=== PATIENT | male | born 1950 | race Caucasian/White ===

== ENCOUNTER 2019-08-24 08:40 | Day surgery (SDC) | payer MEDICARE, BC ==
[2019-08-24] MEDS ORDERED: Lactated Ringers 1,000 ML IV SCH (08:45)
[2019-08-24] MEDS ORDERED: Sodium Chloride 0.9% 10 ML Syringe FLUSH PRN (08:45)
[2019-08-24] MEDS ORDERED: Propofol 200 MG/20 ML SDV ONE ×3 (09:30→10:14)
--- NOTE | 2019-08-24 09:30 | PCM.HPR ---
H & P Addendum review - H & P Addendum Review Date of Original H & P: 08/10/19 Date Reviewed: 08/24/19 Time Reviewed: 09:30 Patient was Examined: No Changes
--- NOTE | 2019-08-24 10:12 | PCM.OPNOTE ---
- General Post-Op/Procedure Note Date of Surgery/Procedure: 08/24/19 Operative Procedure(s): Colonoscopy with polypectomy Findings: 2 polyps Sig tics Pre Op Diagnosis: Hx Polyps Post-Op Diagnosis: Same Anesthesia Technique: MAC Primary Surgeon: Sebastian Metcalf Complications: None Condition: Good
[2019-08-24 10:47] VITALS: BP 133/86; PULSE 62
--- NOTE | 2019-08-24 11:24 | OR ---
Date of Procedure: 08/24/2019 PREOPERATIVE DIAGNOSIS: History of colon polyps. POSTOPERATIVE DIAGNOSES: 1. Colon polyps. 2. Sigmoid diverticulosis. PROCEDURE: Colonoscopy with polypectomy. ANESTHESIA: IV sedation. DESCRIPTION OF PROCEDURE: The patient was brought to the procedure room where he was placed on his left side and IV sedation administered. Digital rectal exam was performed which was normal. Colonoscope was inserted and advanced to the level of the cecum without difficulty. Cecal position was confirmed by identifying the appendiceal lumen and ileocecal valve. Prep was good and surfaces were well visualized. In the cecum adjacent to the ileocecal valve, was a 6 mm sessile polyp removed with a cautery snare and retrieved in the polyp trap. At the hepatic flexure, was a small 5 mm sessile polyp, also removed with a cautery snare and retrieved for pathology review. The remaining transverse colon was normal. Descending colon was normal. Sigmoid colon had several diverticula present. Rectum was normal and retroflexion was normal. Air was removed and the scope withdrawn. The patient tolerated the procedure well and returned to Recovery in stable condition. PLAN: The patient will follow up with Jin Coello next week for review of pathology report. If polyps are adenomatous, he should undergo repeat colonoscopy again in 3 years. If polyps are hyperplastic, he could wait 5 years until his next colonoscopy. PRAFUL SMITH MD /[id number]
== END 2019-08-24 11:05 | disposition home or self-care (01) ==
LOC: LL.SDS 08:40
PROVIDERS: ATTEND Surgery
DX: Z12.11 Encounter for screening for malignant neoplasm of colon (principal); D12.0 Benign neoplasm of cecum; D12.3 Benign neoplasm of transverse colon; K57.30 Diverticulosis of large intestine without perforation or abscess without bleeding; I10 Essential (primary) hypertension; E11.9 Type 2 diabetes mellitus without complications; E66.9 Obesity, unspecified; J44.9 Chronic obstructive pulmonary disease, unspecified; K21.9 Gastro-esophageal reflux disease without esophagitis; M19.90 Unspecified osteoarthritis, unspecified site; N40.0 Benign prostatic hyperplasia without lower urinary tract symptoms; Z88.6 Allergy status to analgesic agent; Z68.36 Body mass index [BMI] 36.0-36.9, adult; Z86.010 Personal history of colon polyps; Z79.84 Long term (current) use of oral hypoglycemic drugs; Z79.82 Long term (current) use of aspirin; Z79.899 Other long term (current) drug therapy
CPT/HCPCS: 45385; 82962; J2704; J7120; 00811; 88305

== ENCOUNTER 2022-11-26 10:02 | Day surgery (SDC) | payer MEDICARE, BC ==
[~2022-11-26 10:02] MED LIST: Midazolam 1 MG/ML 2 ML SDV ONE; Propofol 200 MG/20 ML SDV ONE
[2022-11-26] MEDS ORDERED: Sodium Chloride 0.9% 10 ML Syringe FLUSH PRN (10:15)
[2022-11-26] MEDS: Lactated Ringers 1,000 ML IV SCH (10:52)
[2022-11-26 11:47] VITALS: BP 141/98; PULSE 63
== END 2022-11-26 12:08 | disposition home or self-care (01) ==
LOC: LL.SDS 10:02
PROVIDERS: ATTEND Surgery
DX: Z12.11 Encounter for screening for malignant neoplasm of colon (principal); K57.30 Diverticulosis of large intestine without perforation or abscess without bleeding; I10 Essential (primary) hypertension; E11.69 Type 2 diabetes mellitus with other specified complication; E78.5 Hyperlipidemia, unspecified; I48.0 Paroxysmal atrial fibrillation; Z86.010 Personal history of colon polyps; Z79.899 Other long term (current) drug therapy; Z79.82 Long term (current) use of aspirin; Z79.84 Long term (current) use of oral hypoglycemic drugs; Z88.6 Allergy status to analgesic agent
CPT/HCPCS: 00812; J2250; J2704; J7120